=== PATIENT | male | born 1990 | race Caucasian/White ===

== ENCOUNTER 2017-03-26 18:37 | Emergency (ER) | payer OTHER ==
[2017-03-26 18:43] VITALS: TEMP 98.1
[2017-03-26] MEDS ORDERED: NS 1,000 ML IV ONE (19:26)
[2017-03-26 19:43] LABS: % IMMATURE GRANULYOCYTES 0.3 % (0.0-1.1); ABSOLUTE IMMATURE GRANULOCYTES 0.02 10^3/uL (0.00-0.10); ADD DIFF? NO; ADD MORPH? NO; ADD SCAN? NO; ATYPICAL LYMPHOCYTE FLAG 20 (0-99); FRAGMENT RBC FLAG 0 (0-99); HEMATOCRIT 39.8 % (40.0-51.0); HEMOGLOBIN 13.9 g/dL (13.7-17.5); LEFT SHIFT FLG 0 (0-99); LIPEMIA HEMOLYSIS FLAG 90 (0-99); MEAN CELL HEMOGLOBIN 33.4 pg (27.9-34.1); MEAN CELL HEMOGLOBIN CONCENTR. 34.9 g/dL (32.4-36.7); MEAN CELL VOLUME 95.7 fL (81.5-99.8); MEAN PLATELET VOLUME 8.7 fL (8.7-11.7); PLATELET CLUMPS FLAG 0 (0-99); PLATELET COUNT 237 10^3/uL (150-400); RED BLOOD CELL COUNT 4.16 10^6/uL (4.40-6.38); RED CELL DISTRIBUTION WIDTH 12.2 % (11.5-15.2)
[2017-03-26 19:46] LABS: COLOR PALE YELLOW; LEUKOCYTE ESTERASE,URINE NEGATIVE (NEGATIVE); NITRITE,URINE NEGATIVE (NEGATIVE)
[2017-03-26 19:47] LABS: MUCUS TRACE /lpf (NONE-1+)
[2017-03-26 20:03] LABS: ALANINE AMINOTRANSFERASE 72 IU/L (21-72); ALBUMIN 5.2 g/dL (3.5-5.0); ALKALINE PHOSPHATASE 45 IU/L (38-126); ANION GAP 15 mEq/L (8-16); ASPARTATE AMINOTRANSFERASE 51 IU/L (17-59); BILIRUBIN,TOTAL 0.9 mg/dL (0.1-1.4); BILIRUBIN-CONJUGATED 0.2 mg/dL (0.0-0.5); BILIRUBIN-UNCONJUGATED 0.7 mg/dL (0.0-1.1); CALCIUM 10.2 mg/dL (8.5-10.4); CARBON DIOXIDE 24 mEq/l (22-31); CHLORIDE 99 mEq/L (97-110); CREATININE 1.2 mg/dL (0.7-1.3); GLOMERULAR FILTRATION RATE > 60; GLUCOSE 76 mg/dL (70-100); POTASSIUM 4.2 mEq/L (3.5-5.2); SODIUM 138 mEq/L (134-144); TOTAL PROTEIN 8.7 g/dL (6.3-8.2)
--- NOTE | 2017-03-26 20:09 | EDPHY ---
H & P Stated Complaint: Constipation x 1 wk;had loose stool today,+nausea,bowel issues x 2-3 wks HPI/ROS: CHIEF COMPLAINT: Constipation, abdominal discomfort HISTORY OF PRESENT ILLNESS: Patient complains of 3 weeks history of abdominal complaints. Started as a cramping epigastric discomfort with some nausea and diarrhea. This lasted for 7-10 days and has transitioned to constipation over the last few days. [id number] symptoms that have worsened over the past 2 days. No fever or chills. No bloody stools or emesis. No trauma or injury. No actual vomiting. No history of abdominal surgeries. No prior diagnosis of inflammatory or irritable bowel. No evaluation by GI physicians. He has not yet been seen for this specific complaint. No other associated complaints or modifying factors. REVIEW OF SYSTEMS: Ten systems reviewed and are negative unless otherwise noted in the HPI PAST MEDICAL HISTORY: Left ACL injury remotely SOCIAL HISTORY: Nonsmoker. Works at [employer] FAMILY HISTORY: Noncontributory EXAMINATION General Appearance: Alert, no distress Head: normocephalic, atraumatic Eyes: Pupils equal and round, no conjunctival pallor or injection ENT, Mouth: Mucous membranes moist. Uvula midline. Neck: Normal inspection, supple, non-tender Respiratory: Lungs are clear to auscultation. No wheezing, rhonchi or crackles Cardiovascular: Regular rate and rhythm. No murmur. Pulses intact distally. Gastrointestinal: Abdomen is soft and nontender. No tympany. No rigidity. No distention. No guarding. No CVA tenderness. Nonacute abdomen. Back: non-tender, no bony abnormalities Neurological: A&O, nonfocal, normal gait Skin: Warm and dry, no rash Extremities: Nontender, no pedal edema Psychiatric: Mood and affect normal DIFFERENTIAL DIAGNOSES: Including but not limited to ulcerative colitis, Crohn's, irritable bowel, enteritis, colitis, diverticulitis, pancreatitis, cholecystitis, cholelithiasis , appendicitis, gastroenteritis MDM: 7:26 p.m. Nausea and diarrhea that subsequently is follow with constipation up. He has some abdominal discomfort. Abdominal exam is benign. Suspect this is inflammatory bowel scenario. Laboratory studies are pending at this time. He is in no acute distress. Vital signs are stable 8:40 p.m. Laboratory studies are within normal limits. Patient still has some discomfort. He is requesting that we perform a CT scan for further delineation. He does have some tenderness on examination but is abdomen is nonacute. We discussed that this may not provide informed diagnosis and he is comfortable this. CT scan of the abdomen pelvis has been ordered I suspect this will reveal inflammatory bowel appearance. 9:30 p.m. Notified by radiologist Dr. Lamb. CT scan of the abdomen and pelvis reveals no acute findings. I have re-evaluated the patient. He is resting comfortably at this time. No abdominal pain. We discussed the laboratory findings and CT findings. We discussed discharge home with follow up with primary care physician and GI physician. He is comfortable with this plan. I have answered all his questions, and he will be discharged home stable condition. Return to the emergency department precautions were discussed in detail SUPERVISION: This patient was independently evaluated without direct examination by the attending physician. Case was discussed with attending physician. Case discussed with Dr. Hernandez Source: Patient Exam Limitations: No limitations - Personal History Current Tetanus Diphtheria and Acellular Pertussis (TDAP): Yes - Medical/Surgical History Other PMH: healthy - Social History Smoking Status: Never smoked Constitutional: Initial Vital Signs Temperature (C) 98.1 F 03/26/17 18:39 Heart Rate 56 L 03/26/17 18:39 Respiratory Rate 16 03/26/17 18:39 Blood Pressure 137/84 H 03/26/17 18:39 O2 Sat (%) 100 03/26/17 18:39 O2 Delivery Mode Room Air Allergies/Adverse Reactions: No Known Allergies Allergy (Unverified 03/26/17 18:42) Home Medications: Medication Instructions Recorded Sennosides [Senna] 8.8 mg PO DAILY #1 btl 03/26/17 Medical Decision Making - Diagnostics Imaging Results: Imaging Impressions Abdomen CT 03/26/17 20:40 Impression: 1. Normal CT abdomen and pelvis with contrast enhancement. 2. No CT evidence of bowel wall thickening, abscess or bowel obstruction. Findings discussed with Benoit Patel PAC at 21:33 hour, 03/26/2017. - Data Points Laboratory Results: Laboratory Results 03/26/17 19:25 03/26/17 19:25 03/26/17 03/26/17 03/26/17 19:25 19:25 19:25 WBC 6.46 10^3/uL 10^3/uL (3.80-9.50) RBC 4.16 10^6/uL L 10^6/uL (4.40-6.38) Hgb 13.9 g/dL g/dL (13.7-17.5) Hct 39.8 % L % (40.0-51.0) MCV 95.7 fL fL (81.5-99.8) MCH 33.4 pg pg (27.9-34.1) MCHC 34.9 g/dL g/dL (32.4-36.7) RDW 12.2 % % (11.5-15.2) Plt Count 237 10^3/uL 10^3/uL (150-400) MPV 8.7 fL fL (8.7-11.7) Neut % (Auto) 46.2 % % (39.3-74.2) Lymph % (Auto) 39.3 % % (15.0-45.0) Ashley % (Auto) 8.8 % % (4.5-13.0) Eos % (Auto) 4.6 % % (0.6-7.6) Baso % (Auto) 0.8 % % (0.3-1.7) Nucleat RBC Rel Count 0.0 % % (0.0-0.2) Absolute Neuts (auto) 2.98 10^3/uL 10^3/uL (1.70-6.50) Absolute Lymphs (auto) 2.54 10^3/uL 10^3/uL (1.00-3.00) Absolute Monos (auto) 0.57 10^3/uL 10^3/uL (0.30-0.80) Absolute Eos (auto) 0.30 10^3/uL 10^3/uL (0.03-0.40) Absolute Basos (auto) 0.05 10^3/uL 10^3/uL (0.02-0.10) Absolute Nucleated RBC 0.00 10^3/uL 10^3/uL (0-0.01) Immature Gran % 0.3 % % (0.0-1.1) Immature Gran # 0.02 10^3/uL 10^3/uL (0.00-0.10) Sodium 138 mEq/L mEq/L (134-144) Potassium 4.2 mEq/L mEq/L (3.5-5.2) Chloride 99 mEq/L mEq/L (97-110) Carbon Dioxide 24 mEq/l mEq/l (22-31) Anion Gap 15 mEq/L mEq/L (8-16) BUN 26 mg/dL H mg/dL (7-23) Creatinine 1.2 mg/dL mg/dL (0.7-1.3) Estimated GFR > 60 Glucose 76 mg/dL mg/dL (70-100) Calcium 10.2 mg/dL mg/dL (8.5-10.4) Total Bilirubin 0.9 mg/dL mg/dL (0.1-1.4) Conjugated Bilirubin 0.2 mg/dL mg/dL (0.0-0.5) Unconjugated Bilirubin 0.7 mg/dL mg/dL (0.0-1.1) AST 51 IU/L IU/L (17-59) ALT 72 IU/L IU/L (21-72) Alkaline Phosphatase 45 IU/L IU/L (38-126) Total Protein 8.7 g/dL H g/dL (6.3-8.2) Albumin 5.2 g/dL H g/dL (3.5-5.0) Lipase 123.0 IU/L IU/L (23-300) Urine Color PALE YELLOW Urine Appearance CLEAR Urine pH 5.0 (5.0-7.5) Ur Specific Scott 1.008 (1.002-1.030) Urine Protein NEGATIVE (NEGATIVE) Urine Ketones TRACE H (NEGATIVE) Urine Blood NEGATIVE (NEGATIVE) Urine Nitrate NEGATIVE (NEGATIVE) Urine Bilirubin NEGATIVE (NEGATIVE) Urine Urobilinogen NEGATIVE EU EU (0.2-1.0) Ur Leukocyte Esterase NEGATIVE (NEGATIVE) Urine RBC 1-3 /hpf /hpf (0-3) Urine WBC 1-3 /hpf /hpf (0-3) Ur Epithelial Cells NONE SEEN /lpf /lpf (NONE-1+) Urine Mucus TRACE /lpf /lpf (NONE-1+) Urine Glucose NEGATIVE (NEGATIVE) Medications Given: Discontinued Medications Sodium Chloride (Ns) 1,000 mls @ 0 mls/hr IV ONCE ONE; Wide Open PRN Reason: Protocol Stop: 03/26/17 19:27 Last Admin: 03/26/17 19:38 Dose: 1,000 mls Departure - Departure Disposition: Home, Routine, Self-Care Clinical Impression: Abdominal pain Qualifiers: Abdominal location: generalized Qualified Code(s): R10.84 - Generalized abdominal pain Constipation Qualifiers: Constipation type: other constipation type Qualified Code(s): K59.09 - Other constipation Condition: Good Instructions: Constipation (ED), High Fiber Diet (ED), Acute Abdominal Pain (ED ) Additional Instructions: 1. Follow up with primary care physician and GI physician 2. Recommend senna or Colace once daily to prevent further constipation 3. Return here for worsening pain, fever, intractable vomiting, bloody stools or emesis Referrals: BÁRBRAA VELÁSQUEZ [Primary Care Provider] - As per Instructions Dhaval Lebron MD, FACG [Medical Doctor] - As per Instructions Prescriptions: Sennosides [Senna] 8.8 mg PO DAILY #1 btl
[2017-03-26] MEDS ORDERED: IOPAMIDOL (ISOVUE-300) 100 ML BTL ONE (20:52)
[2017-03-26 21:51] VITALS: BP 114/71; PULSE 46; RESP 16; O2SAT 97
== END 2017-03-26 21:51 | disposition home or self-care (01) ==
DX: K59.09 Other constipation (principal); E86.9 Volume depletion, unspecified
CPT/HCPCS: Q9967